=== PATIENT | male | born 1980 | race Caucasian/White ===

== ENCOUNTER 2022-07-17 05:32 | Day surgery (SDC) | payer OTHER ==
[~2022-07-17] VITALS: Ht 182.9 cm; Wt 97.3 kg
--- NOTE | 2022-07-17 08:58 | NUR ---
07/17/22 0858 Maria Dolores Erickson 0887-PATIENT ARRIVED TO PACU ON RA RR EVEN. PATIENT AWAKE DROWSY HOB ELEVATED. SR. IVF INFUSING. INCISION SITES CDI. GUARD AT BEDSIDE.
[2022-07-17] MEDS ORDERED: IBUPROFEN600 MG PO (09:21)
[2022-07-17] MEDS ORDERED: ACETAMINOPHEN500 MG PO (09:21)
[2022-07-17] MEDS ORDERED: HYDROCODON-ACE1 EA10 PO (09:21)
--- NOTE | 2022-07-17 09:44 | NUR ---
MAIN 0930: PT IS BACK TO DS FROM PACU. HE IS A&A. NO C/O'S OF PAIN. TOLERATING WATER AND CRACKERS. [facility] TRANSPORT OFFICERS AT THE BEDSIDE. DC CRITERIA IS REVIEWED WITH PT.
--- NOTE | 2022-07-17 10:45 | NUR ---
LE 1040: PT IS READY TO DC BACK TO FACILITY. HE IS GIVEN VERBAL AND WRITTEN DC INSTRUCTIONS. HE HAS NO QUESITONS AT THIS TIME. HE IS DRESSED WITH TRANSPORT OFFICER ASSISTANCE, THEN WHEELED OUT TO VEHICLE. LE 1045: [facility] IS CALLED AND GIVEN VERBAL REPORT. PRINTED DC INSTRUCTIONS AND RX ARE SENT BACK TO FACILITY WITH TRANSPORT OFFICERS.
--- NOTE | 2022-07-18 14:52 | OR ---
[facility] [address], [place] [address] Signed DATE OF OPERATION: 07/17/2022 SURGEON: Juan Velasco MD PREOPERATIVE DIAGNOSIS: Symptomatic soft tissue masses: Subxiphoid, left lumbar, left low lumbar, and left subscapular. POSTOPERATIVE DIAGNOSIS: Symptomatic soft tissue masses: Subxiphoid, left lumbar, left low lumbar, and left subscapular, all consistent with lipomata. PROCEDURES: Excision of subfascial lipomata; subxiphoid 4 cm, left subscapular 3 cm, left lumbar 4 cm, and left low lumbar 8 cm. ANESTHESIA: General endotracheal; Luc Lynn CRNA and local, 15 mL of 0.25% Marcaine with epinephrine. INDICATIONS: This 42-year-old white man is incarcerated at [facility]. He has had soft tissue masses over his body for a number of years and he has had excision elsewhere for some of them. He is particularly bothered currently by subxiphoid soft tissue mass consistent with lipoma. In addition, he has a left low lumbar soft tissue mass consistent with lipoma and one slightly cephalad to that and another in the subscapular area. All of them progressively bothersome to him. Given the symptomatic nature of the soft tissue masses and apparent growth over time, excision is offered. The risks of bleeding, infection, cosmetic deformity, and other unforeseen complications was reviewed with him. He understands and wished to proceed. FINDINGS: All of them appeared to be multilobulated lipomata. All of them were subfascial and excised completely. DESCRIPTION OF PROCEDURE: The patient was brought to the operating room, given a general endotracheal anesthetic. Preoperative antibiotic Ancef was given. Sequential compression device stockings used and heparin subcutaneously administered. In the supine position, the anterior abdominal area in the subxiphoid site was prepared with a chlorhexidine solution and draped Electronically Signed By: JUAN VELASCO MD 07/18/22 3279 PATIENT NAME: ANA MENDEZ OPERATIVE REPORT DATE OF : 76 REPORT #: [id number] PHYSICIAN: JUAN VELASCO MD PCP: YENNI SALMON REPORT IS CONFIDENTIAL AND NOT TO BE RELEASED WITHOUT AUTHORIZATION [facility] [address], [place] [address] Signed sterilely. The lesion was easily palpable. A transverse incision was made avoiding elaborate tattoo what he had there. Dissection was carried through the subcutaneous tissue with blunt and electrocautery dissection and using hemostats, a multilobulated subfascial lipoma excised completely, it measured approximately 3 cm. Additional evaluation showed no satellite lipomata at that point. A 5 mL of 0.25% Marcaine with epinephrine injected locally. The wound was closed in layers with interrupted 2-0 Vicryl in deep dermal layer and running subcuticular 3-0 Vicryl for the skin. Steri-Strips were applied as was an Acticoat dressing. The patient was then placed into a lateral position with the left side up. In the areas of previously marked soft tissue masses in the left subscapular, left low lumbar, and left upper lumbar area, identified and prepared with a chlorhexidine solution and draped sterilely. With similar technique as to the anterior subxiphoid lipoma, all three lesions were excised. Closure was similarly undertaken. Subscapular lipoma was 3 cm, left lumbar 4 cm and the lowest lumbar 8 cm in size. Steri-Strips were applied and Acticoat dressings applied as well. The patient was returned to the supine position, ultimately extubated and transferred to the recovery room in good condition, having suffered no complications. Sponge, needle, and instrument counts were reported as correct x3. MD LAURA Rivero/MODL /[id number] cc: Yenni Salmon [facility] Copies: ~ Electronically Signed By: JUAN VELASCO MD 07/18/22 1452 PATIENT NAME: ANA MENDEZ OPERATIVE REPORT DATE OF : 76 REPORT #: [id number] PHYSICIAN: JUAN VELASCO MD PCP: YENNI SALMON [facility] REPORT IS CONFIDENTIAL AND NOT TO BE RELEASED WITHOUT AUTHORIZATION
--- NOTE | 2022-07-21 15:57 | PATH ---
[facility] [address] [place], [place] [address] Signed SPECIMEN(S): A SUBXIPHOID SOFT TISSUE MASS SPECIMEN(S): B LEFT SCAPULAR SOFT TISSUE MASS SPECIMEN(S): C LEFT LUMBAR LIPOMA SPECIMEN(S): D LEFT LUMBAR SOFT TISSUE MASS SPECIMEN SOURCE: A. SUBXIPHOID SOFT TISSUE MASS B. LEFT SCAPULAR SOFT TISSUE MASS C. LEFT LUMBAR LIPOMA D. LEFT LUMBAR SOFT TISSUE MASS CLINICAL HISTORY: Excision of soft tissue masses FINAL PATHOLOGIC DIAGNOSIS: A. Subxiphoid soft tissue mass: - Hart lobulated adipose tissue consistent with lipoma. B. Left subscapular soft tissue mass: - Hart lobulated adipose tissue, consistent with lipoma. C. Left lumbar lipoma: - Hart lobulated adipose tissue, consistent with lipoma. D. Left lumbar soft tissue mass: - Hart lobulated adipose tissue, consistent with lipoma. JVR:khadar:C2NR MICROSCOPIC EXAMINATION: Histologic sections of all submitted blocks are examined by light microscopy. These findings, together with the gross examination, support the pathologic diagnosis. GROSS DESCRIPTION: A. The specimen, labeled and designated "Cheo Mendez, " and designated on the requisition "subxiphoid, soft tissue mass," is received in formalin and consists of 5 gram of portion of yellow-oliver adipose tissue that measure 4.5 x 3.6 x 1.1 cm in aggregate. Several of the pieces are partially surfaced by a transparent membranous tissue. The tissue is inked and serially sectioned to reveal a yellow homogeneous cut surface. Shoveler sections are submitted in (A1-A2). B. The specimen, labeled and designated "Cheo Mendez, " and designated on the requisition "left scapular, soft tissue mass," is received in formalin and consists of a 6 gram portion of yellow-oliver PATIENT NAME: ANA MENDEZ PATHOLOGY DATE OF : 76 REPORT #: [id number] PHYSICIAN: DHRUV PATHOLOGY PCP: YENNI SALMON REPORT IS CONFIDENTIAL AND NOT TO BE RELEASED WITHOUT AUTHORIZATION [facility] [address] [place] [place], [place] [address] Signed adipose tissue that is 4.3 x 3.7 x 1.6 cm. The specimen is partially surfaced by transparent membranous tissue. The tissue is inked and serially sectioned to reveal a yellow homogeneous cut surface. Shoveler sections are submitted in (B1-B2). C. The specimen, labeled and designated "Cheo Mendez, " and designated on the requisition "left lumbar lipoma," is received in formalin and consists of a 4 gram portion of yellow-oliver adipose tissue that is 3.4 x 2.2 x 1.4 cm. The specimen is surfaced by transparent membranous tissue. The tissue is inked and serially sectioned to reveal a pale yellow homogeneous cut surface. Shoveler sections are submitted in (C1). D. The specimen, labeled and designated "Cheo Mendez, " and designated on the requisition "left lumbar soft tissue mass," is received in formalin and consists of a 35 gram portion of yellow-oliver adipose tissue that is 6.8 x 5.1 x 2.4 cm. The specimen is surfaced by transparent membranous tissue. The tissue is inked and serially sectioned to reveal a pale yellow homogeneous cut surface. Shoveler sections are submitted in (D1-D4). FB (under the direct supervision of a pathologist) The Gross Description was prepared using a voice recognition system. The report was reviewed for accuracy; however, sound-alike word errors, addition and/or deletions may occur. If there is any question about this report, please contact Client Services. PERFORMING LABORATORY: The technical component was performed by [facility], [address] [place] [id number] (CLIA# [id number]). Professional interpretation was performed by [facility], [address] [place] [id number] (CLIA#: [id number]). Diagnostician: Declan Small MD Pathologist Electronically Signed 07/21/2022 Copies: ~ PATIENT NAME: ANA MENDEZ PATHOLOGY DATE OF : 76 REPORT #: [id number] PHYSICIAN: DHRUV RUSSO PCP: YENNI SALMON REPORT IS CONFIDENTIAL AND NOT TO BE RELEASED WITHOUT AUTHORIZATION
== END 2022-07-17 10:45 | disposition home or self-care (01) ==
LOC: DS 05:32
PROVIDERS: ATTEND Surgery
PROC: 0JB80ZZ Excision of Abdomen Subcutaneous Tissue and Fascia, Open Approach (ICD-10-PCS; principal; 2022-07-17 07:30)
PROC: 0JB70ZZ Excision of Back Subcutaneous Tissue and Fascia, Open Approach (ICD-10-PCS; 2022-07-17 07:30)
DX: D17.1 Benign lipomatous neoplasm of skin and subcutaneous tissue of trunk (principal)
CPT/HCPCS: J0690; J1100; J1644; J2001; J2405; J2704; J3010; J7121